=== PATIENT | female | born 1925 | race Caucasian/White ===

== ENCOUNTER → 2017-04-18 | Outpatient (CLI) | payer MEDICARE, BC ==
[~2017-04-18] MED LIST: ACETAMINOPHEN PO; ACID CONTROLLER20 MG PO; ACTOS PO; AMLODIPINE BESY10 MG PO; AUGMENTIN875 MG DOB; CELLUVISC OD; CENTRUM PO; CENTRUM SILVER PO; COUMADIN PO; COZAAR100 MG PO; DIOVAN PO; DOCUSATE SODIU100 MG PO; FERROUS GLUCON324 MG PO; GLYNASE PO; HYDROCHLOROTH12.5 M1 PO; ISOPTO TEARS15 ML OU; JANTOVEN4 MG PO; LANSOPRAZOLE30 M2 PO; LANTUS100 U/M1 IM; LANTUS100 U/ML; LANTUS100 U/ML SUBQ; LIPITOR PO; LIPITOR20 MG PO; LIPITOR40 MG PO; MILK OF MAGNESIA PO; MIRALAX17 G2 PO; MULTI-VITAMIN1 TAB PO; NEURONTIN100 MG PO; NEXIUM PO; NORVASC PO; NORVASC10 MG PO; OS-CAL 500+D31 EACH PO; OSCAL; PANTOPRAZOLE SO40 MG PO; PERCOCET5/325 PO; PRESERVISION A1 EAC1 PO; SENNA S TABLET1 TAB PO; SOD BICARBONATE PO; SYNTHROID0.05 MG DOB; SYSTANE 0.3-0.415 ML OP; THERA TEARS28 EA OP; TIMOPTIC 0.5% OP5 M1 OD; TIMOPTIC 0.5% OP5 ML OD; VALACYCLOVIR1000 MG PO; VITAMIN B-6; VITAMIN B-650 M2 PO; VITAMIN B650 M1 PO; VITAMIN D-32000 UNI1 PO; VITAMIN D31000 UNIT PO; ZYLOPRIM100 MG PO
--- NOTE | ~2017-04-18 | CR63 ---
[facility] A Service of [facility] RADIOLOGY TEXT RESULTS PATIENT: LANI CABEZAS V LOCATION: [facility] : [birth year] UNIT #: [id number] AGE: [address]: Shellie Casey MD SEX: F ORDER DR: [id number] [facility] [address] [place], [place] [address] [id number] MR#: [id number] Acc #: [id number] NAME: LANI CABEZAS : 1925 SEX: F STUDY DATE/TIME: 04/18/2017 16:54 UNIT: [facility] ROOM: STUDY DESCRIPTION: CR Chest 2 View Attending Physician: Shellie Casey M.D. Ordering Physician: Shellie Casey M.D. Primary Care Physician: Shellie Casey M.D. MEDICAL IMAGING REPORT This report is preliminary unless electronic signature is present EXAM PA lateral chest DATE: 04/18/2017 HISTORY 89-year-old female with shortness breath with activity, chest and upper back pain which began 5 days ago. COMPARISON PA and lateral chest radiograph 09/09/2016. FINDINGS Chronic-appearing interstitial changes within the lungs. No acute airspace disease is seen. There is thoracic kyphoscoliotic curvature. No definite acute osseous abnormalities are seen. Stable cardiac enlargement. IMPRESSION 1. No acute chest findings. 2. Thoracic kyphoscoliosis. 3. Stable cardiomegaly. Dictated by... Linda Lynn M.D. THIS IS AN ELECTRONICALLY VERIFIED REPORT Linda Lynn M.D. at 04/20/2017 7:36 AM LIZA/praveena TD: 04/19/2017 02:52 JOB #: [id number] [facility] A Service of [facility] & [facility] RADIOLOGY TEXT RESULTS PATIENT: LANI CABEZAS V LOCATION: [facility] : [birth year] UNIT #: [id number] AGE: [address]: Shellie Casey MD SEX: F ORDER DR: MEDICAL IMAGING REPORT Page 1 of 1 COPY
== END | disposition home or self-care (01) ==
LOC: CRAD 16:37
DX: M54.9 Dorsalgia, unspecified (principal); I51.7 Cardiomegaly; M41.9 Scoliosis, unspecified
CPT/HCPCS: 71020